=== PATIENT | male | born 1970 | race Caucasian/White ===

== ENCOUNTER 2022-08-14 12:52 | Emergency (ER) | payer MEDICAID ==
[~2022-08-14] VITALS: Ht 175.3 cm; Wt 113.0 kg
[~2022-08-14 12:52] MED LIST: GUAI10SY2 PO
[2022-08-14 12:58] VITALS: BP 145/99
--- NOTE | 2022-08-14 13:17 | NUR ---
xray at bedside.
--- NOTE | 2022-08-14 13:17 | NUR ---
Malia at bedside.
--- NOTE | 2022-08-14 13:28 | NUR ---
xray at bedside for post-reduction.
== END 2022-08-14 13:40 | disposition home or self-care (01) ==
LOC: ER 12:52
DX: S43.005A Unspecified dislocation of left shoulder joint, initial encounter (principal); W19.XXXA Unspecified fall, initial encounter; Y93.89 Activity, other specified; Y92.89 Other specified places as the place of occurrence of the external cause; Y99.8 Other external cause status
CPT/HCPCS: 23650; 73020; 99284; A4565